=== PATIENT | male | born 1990 | race Caucasian/White ===

== ENCOUNTER 2022-05-01 20:13 | Emergency (ER) | payer OTHER ==
[2022-05-01 20:22] VITALS: BP 120/87; PULSE 100; RESP 18; TEMP 97.6; BMI 18.7
[2022-05-02] MEDS ORDERED: LORazepam 2 MG TABLET PO ONE (02:04)
[2022-05-02] MEDS ORDERED: LORazepam 1 MG TABLET ONE (02:53)
[2022-05-02 03:09] LABS: BASO % 0.6 % (0-2.0); EOS % 2.8 % (0-4.5); HEMATOCRIT 39.9 % (35.4-49); HEMOGLOBIN 13.8 GM/dL (11.7-16.9); LYMPH % 37.9 % (8-40); MCH 30.7 pg (25.7-33.7); MCHC 34.5 g/dl (32.0-35.9); MEAN CELL VOLUME 89.1 fl (80-96); MEAN PLT VOLUME 8.2 fl (7.5-11.1); MONO % 11.8 % (3.8-10.2); NEUT % 46.9 % (42.8-82.8); PLATELET COUNT 179 10^3/uL (134-434); RBC 4.48 M/mm3 (4.00-5.60); RDW 12.8 % (11.9-15.9); WHITE BLOOD COUNT 5.7 K/mm3 (4.0-10.0)
[2022-05-02 03:29] LABS: ALBUMIN 4.3 g/dl (3.4-5.0); CALCIUM 9.1 mg/dL (8.5-10.1)
[2022-05-02 03:30] LABS: BLOOD UREA NITROGEN 9.8 mg/dL (7-18)
[2022-05-02 03:33] LABS: CREATININE 0.8 mg/dL (0.55-1.3)
[2022-05-02 03:34] LABS: BILIRUBIN,TOTAL 0.8 mg/dL (0.2-1); TOT PROT 8.2 g/dl (6.4-8.2)
== END 2022-05-02 06:27 | disposition home or self-care (01) ==
LOC: JER 20:13 → JERFT 20:13 → JER 05-02 06:27
DX: F41.9 Anxiety disorder, unspecified (principal)
CPT/HCPCS: 36415; 71046-TC-FY; 80053; 84443; 84484; 85025; 93005; 93010; 99285-25